=== PATIENT | male | born 1940 | race Caucasian/White ===

== ENCOUNTER 2021-05-22 10:50 | Outpatient (REF) | payer MEDICARE, SELFPAY ==
--- NOTE | ~2021-05-22 | XR_ITS ---
EXAMINATION: XR CHEST CLINICAL INFORMATION: Chronic cough COMPARISON: CT scan of April 05, 2019 and chest x-ray of April 14, 2019 TECHNIQUE: 2 views of the chest were obtained. FINDINGS: There is an increasing soft tissue density seen overlying the right apex and enlarging tumor cannot be excluded. No bony destruction is evident. On previous CT scan there is approximately 2 cm soft tissue pleural-based density on April 05, 2019. There is bilateral apical pleural-parenchymal scarring present. Heart normal size. No evidence of pulmonary edema. No pneumothorax or pleural effusion. XR/XR chest 2V IMPRESSION: Enlarging soft tissue density about the right apex for which malignancy cannot be excluded.
--- NOTE | ~2021-05-22 | XR_ITS ---
EXAMINATION: XR CERVICAL SPINE CLINICAL INFORMATION: Dorsalgia. COMPARISON: None TECHNIQUE: 5 views of the cervical spine. FINDINGS: No abnormal prevertebral soft tissue swelling is seen. No acute fracture is appreciated. There is significant disc space narrowing seen C3 through C7 with some marginal spurring. At the C4-C5 level there is some spurring of the joints of [place] which appears be causing some degree of neural foraminal encroachment on the right and to a lesser extent on the left. XR/XR cervical spine min 6V IMPRESSION: No acute cervical spine fracture. Cervical spondylosis as described predominately C3 through C7.
== END 2021-05-22 10:51 | disposition home or self-care (01) ==
LOC: HO.XRAY 10:50
PROVIDERS: PCP Registered Nurse Community Health; Visit Provider Registered Nurse Community Health
DX: M54.9 Dorsalgia, unspecified (principal); R05.3 Chronic cough
CPT/HCPCS: 71046; 72052

== ENCOUNTER 2021-07-16 12:27 | Emergency (ER) | payer MEDICARE, SELFPAY ==
--- NOTE | ~2021-07-16 | XR_ITS ---
EXAMINATION: XR CHEST CLINICAL INFORMATION: Chest pain COMPARISON: Previous chest x-ray April [address] March 2019 TECHNIQUE: Frontal view of the chest was obtained. FINDINGS: The heart does not appear enlarged. There is dilatation of the descending thoracic aorta that appears unchanged. Mediastinal contours are unremarkable. There is evidence of emphysema. There is biapical pleural parenchymal scarring, right greater than left. This does not appear appreciably changed from previous chest x-ray April 2021 however changes on the right appear increased from old chest CT March 2019. There are calcified nodules suggestive of old granulomatous disease. The lungs are otherwise clear. There is no pleural effusion or pneumothorax. Visualized bony structures are unremarkable. XR/XR chest 1V IMPRESSION: No evidence for acute disease in the chest. Biapical pleural and parenchymal scarring, right greater than left. This may be increased in the right lung compared to previous chest CT scan. Emphysema. Aneurysm of the descending thoracic aorta similar to previous exam.
--- NOTE | ~2021-07-16 | XR_ITS ---
EXAMINATION: XR THORACOLUMBAR SPINE CLINICAL INFORMATION: Pain COMPARISON: Previous x-ray September 2010 TECHNIQUE: 3 views of the thoracic spine FINDINGS: Bone alignment is normal. The bones are osteopenic. There is a mild old-appearing T8 vertebral body compression fracture. There is question of a L2 vertebral body compression fracture. This is incompletely visualized. There is an aortic stent graft that is incompletely visualized. There is mild degenerative disc disease of the midthoracic spine. There is right apical pleural thickening. Paraspinal soft tissues are otherwise normal. XR/XR thoracic spine 2V IMPRESSION: Osteopenia. Mild old-appearing T8 vertebral body compression fracture. Question L2 vertebral body compression fracture.
--- NOTE | ~2021-07-16 | CT_ITS ---
EXAMINATION: CT ANGIOGRAM OF THE CHEST WITH AND WITHOUT CONTRAST (CT PULMONARY ANGIOGRAM FOR PE) CLINICAL INFORMATION: Reason for Exam Chest pain, elevated D-dimer COMPARISON: Previous chest x-ray from earlier the same day and chest CTA March 2019 TECHNIQUE: Prior to contrast administration, noncontrast localization images were obtained. Subsequently, multidetector volumetric imaging was performed from the thoracic inlet to below the diaphragms following the administration of 54 mL Omnipaque 350 intravenous contrast. No contrast reaction reported Sagittal, coronal, and MIP oblique sagittal reformatted images were obtained on the CT workstation, uploaded to PACS, and reviewed. This CT examination was performed using dose optimization techniques as appropriate, variously including the following: *Automated exposure control *Adjustment of mA and/or kV according to patient size (this includes techniques or standardized protocols for targeted exams where dose is matched to indication/reason for exam; i.e. extremities or head) *Use of iterative reconstruction technique Total exam dose-length product 228 mGy-cm FINDINGS: QUALITY OF STUDY/CONTRAST BOLUS: Satisfactory. PULMONARY ARTERIES: No central or segmental pulmonary emboli. THORACIC AORTA: There is an aneurysm of the descending thoracic aorta and upper abdominal aorta. This measures 5.2 x 6 cm in transverse and AP dimension. This is slightly increased in size from 4.7 x 5.4 cm March 2019. The ascending thoracic aorta and aortic arch are upper normal in size. Heart does not appear enlarged. The pulmonary arteries are upper normal in size, main pulmonary artery measuring 3 cm. LUNG: There is evidence of emphysema. There is a 4.4 x 6 cm mass at the right lung apex. This extends to the mediastinum abutting the right side of the trachea and esophagus and abuts the T2 vertebral body and first second and third ribs. There is mild bronchial wall thickening and peribronchial nodular opacities in the right lower lobe suggestive of tree-in-bud appearance or airways disease. There are small calcified pulmonary nodules probably representing calcified granulomas. There is a 4 mm peripheral or subpleural right lower lobe nodule adjacent to the major fissure axial image 37 series 5. There is question of a 4 mm right middle lobe nodule axial image 43 series 5. PLEURA: No pleural effusion or pneumothorax. MEDIASTINUM: Normal heart size. No pericardial effusion. Small calcified subcarinal and left hilar lymph nodes. No enlarged lymph nodes.. No evidence of septal bowing or right heart strain. CHEST WALL/AXILLA: No axillary or internal mammary lymphadenopathy. OSSEOUS STRUCTURES: Degenerative changes of the spine. Old mid thoracic vertebral body mild compression fracture. UPPER ABDOMEN: There are calcifications in the spleen. There is an abdominal aortic stent graft that is partially visualized. No reflux of contrast into the hepatic veins to suggest elevated right heart pressures. CT/CT angio chest PE protocol IMPRESSION: No evidence of pulmonary embolism. Severe emphysema. 4.6 x 6 cm right upper lobe apical mass worrisome for neoplasm/Pancoast tumor. Airways disease in the right lower lobe. Aneurysm of the descending thoracic and upper abdominal aorta measuring 5.2 x 6 cm. This is increased in size from 4.7 x 5.4 cm March 2019. VTE:
[2021-07-16 12:31] VITALS: BP 180/95; PULSE 83; O2SAT 98
[2021-07-16 12:43] VITALS: BP 155/87; PULSE 89; RESP 20; TEMP 36.8; O2SAT 100; BMI 16.6
--- NOTE | 2021-07-16 12:52 | ECG_ITS ---
Test Reason : CHEST PAIN Blood Pressure : / mmHG Vent. Rate : 076 BPM Atrial Rate : 076 BPM P-R Int : 190 ms QRS Dur : 092 ms QT Int : 376 ms P-R-T Axes : 073 063 071 degrees QTc Int : 423 ms Normal sinus rhythm Normal ECG When compared with ECG of 14-APR-2019 11:46, MS interval has decreased Referred By: Reggie Covarruibas Electronically Signed By:Clint Small
--- NOTE | 2021-07-16 12:56 | ED.GENADULT ---
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 History was obtained from the patient and EMS with a counseling services director, 81-year-old male who lives home alone mostly independently, and his son visited him on a daily basis, patient has been complaining of chest pain radiating to the upper back, patient however declined any fall or recent foam or trauma to the chest or the back, patient reported cough for a month. Upper back pain started a month ago patient was taking Advil/Tylenol with no relief of the pain reportedly patient finish whole bottle of Advil last month, pain is mostly positional and worsening with movement and coughing, no relieving factor, pain is described as severe 10/10 dull aching pain, no difficulty breathing. No fever or chills. Patient stated no abdominal pain, normal bowel movements in particular no bloody or black stool, no vomiting. Related Data Allergies Allergy/AdvReac Type Severity Reaction Status Date / Time shrimp Allergy Severe UNKNOWN Unverified 01/12/20 16:03 SEAFOOD Allergy Severe UNKNOWN Uncoded 01/12/20 16:03 Review of Systems Review of Systems: All other systems are reviewed and are negative Constitutional: Reports as per HPI and Reports no additional constitutional complaints Eyes: Reports as per HPI and Reports no additional eye complaints Reports system reviewed and no additional complaints, except as documented Cardiovascular: Reports as per HPI and Reports no additional cardiovascular complaints Respiratory: Reports as per HPI and Reports no additional respiratory complaints Gastrointestinal: Reports as per HPI and Reports no additional gastrointestinal complaints Genitourinary: Reports no additional female genitourinary complaints Musculoskeletal: Reports no additional musculoskeletal complaints Skin/Breast: Reports system reviewed and no additional complaints, except as docu Psychiatric: Reports no additional psychiatric complaints Endocrine: Reports no additional endocrine complaints Hematologic/Lymphatic: Reports no additional hematologic/lymphatic complaints Allergic/Immunologic: Reports no additional allergic/immunologic complaints Reports system reviewed and no additional complaints, except as documented and Reports Abnormal speech present PMFSH Social History Social History Advance Directives: No Advance Directives Information Provided: No Physical Exam ED Vital Signs: Vital Signs - 24 hr 07/16/21 12:43 07/16/21 15:35 07/16/21 19:26 Temperature 98.2 F 97.4 F Pulse Rate 89 82 120 H Respiratory Rate 20 15 16 Blood Pressure 155/87 H 162/103 H 154/94 H Pulse Oximetry 100 98 95 07/16/21 19:31 Temperature Pulse Rate 112 H Respiratory Rate Blood Pressure Pulse Oximetry BMI result Body Mass Index 16.6 Vital signs have been reviewed as appeared to be correct. Blood pressure normal. Heart rate normal. Respiration rate normal. Temperature normal. Oxygen saturation normal. Appearance: Alert. Oriented X3. No acute distress. Head: Normal external exam. Normocephalic. Atraumatic. No Abreu signs noted. No raccoon eyes noted Eyes: PERRLA. EOMI. Conjunctiva and sclera normal. Eyelids normal. ENT: TM's Normal. Pharynx normal. Uvula midline. Moist mucous membranes. No trismus noted. No drooling noted. No muffled voice noted. Neck: Normal inspection. Neck supple. FROM. No adenopathy. Thyroid Normal. No meningeal signs. No neck mass noted. CVS: Normal heart rate and rhythm. Heart sound normal. No murmurs noted. Pulses normal throughout. Respiratory: No respiratory distress. Painless inspiration. Breath sounds normal. No wheezes/rales/rhonchi noted. Chest nontender. No accessory muscle usage noted or decreased air movement noted. Abdomen: Soft and nontender. Bowel sounds normal in all 4 quadrants. No distention noted. No organomegaly noted. No visible injury noted. Back: No CVA tenderness. Full range of motion noted. Skin: Skin warm and dry. Normal skin color. Normal skin turgor. No rashes/lesions/lacerations noted. Extremities: No lower extremity edema. Extremities exhibit normal range of motion. Extremities nontender. Neuro: Oriented X 3. Cranial nerve exam: II-XII are grossly intact No motor deficit. No sensory deficit. Reflexes normal. Course Course Course Narrative: Assessment and plan. 81 years old male history of vascular disease came in for a month of epigastric pain radiating to the midback family were concerned that the patient was taking too much Advil and Tylenol for the past months acetaminophen/salicylic acid levels are nondetectable, patient declined any history of trauma, no reproducible tenderness on the exam, thoracic x-ray showed T8 old compression fracture but no reproducible tenderness on the dorsal spine. CT scan with IV contrast showed increasing size of AAA from last year CT (size today is 5.2 x 6 cm increased in size from 4.7 x 5.4 cm in March 2019) given increase the size of the AAA and worsening of the patient's symptoms with pain out of the proportion of the exam is concerning of impending rupture of AAA the case was discussed with Dr. Delano hodges who is covering for vascular surgery tonight recommended to transfer the patient to [facility], the case was discussed with Dr. Davis vascular surgeon at [facility] who recommended to transport for further evaluation at [facility]. The case was discussed with the patient's son (Daniel). I discussed the plan with the patient using counseling services director service. Medical Decision Making Lab Data Result diagrams: 07/16/21 14:32 07/16/21 14:33 Labs: Lab Results 07/16/21 07/16/21 07/16/21 Range/Units 14:32 14:32 14:32 WBC 11.0 H (4.8-10.8) X10*3/uL RBC 2.69 L (4.60-5.80) X10*6/uL Hgb 9.1 L (14.0-18.0) g/dl Hct 28.2 L (42.0-52.0) % MCV 104.8 H (80.0-98.0) fL MCH 33.8 H (27.0-33.0) pg MCHC 32.3 (31.0-36.0) g/dl RDW 17.8 H (11.0-16.0) % Plt Count 328 (160-400) X10*3/uL MPV 10.2 (9.4-12.4) fL Immature Gran % (Auto) 1.5 H (0.0-0.4) % Neut % (Auto) 79.5 H (45-73) % Lymph % (Auto) 6.2 L (20-40) % [place] % (Auto) 4.4 (2-11) % Eos % (Auto) 8.1 H (0-4) % Baso % (Auto) 0.3 (0-2) % Lymph # (Auto) 0.7 L (1.2-4.9) X10*3/uL [place] # (Auto) 0.5 (0.1-1.2) X10*3/uL Eos # (Auto) 0.9 H (0.0-0.4) X10*3/uL Baso # (Auto) 0.0 (0.0-0.2) X10*3/uL Abs Immat Gran (auto) 0.17 H (0.00-0.03) X10*3/uL Absolute Neuts (auto) 8.8 H (2.0-8.3) x10*3/uL Absolute Nucleated RBC 0.000 (0.0-0.012) X10*3/uL Nucleated RBC % (auto) 0.0 (0.0-0.2) /100WBC D-Dimer High Sensitivty 533 NG/ML Sodium (135-145) mmol/L Potassium (3.3-5.1) mmol/L Chloride (96-108) mmol/L Carbon Dioxide (22-29) mmol/L Anion Gap (12-20) BUN (9-16) mg/dL Creatinine (0.5-1.4) mg/dL Estim Creat Clear Calc Estimated GFR Random Glucose (60-115) mg/dL Calcium (8.4-10.2) mg/dL Total Bilirubin (0.0-1.0) mg/dL Direct Bilirubin (0.0-0.5) mg/dL AST (5-37) U/L ALT (0-40) U/L Alkaline Phosphatase (39-117) U/L Troponin I High Sens 3.6 (<3.5-35.0) ng/L B-Natriuretic Peptide (<100) pg/mL Total Protein (6.5-8.0) g/dL Albumin (3.5-5.0) g/dL Lipase (8-78) U/L Urine Color Urine Appearance Urine pH (5.0-8.0) Ur Specific Bishop (1.005-1.025) Urine Protein (NEG-TRACE) MG/DL Urine Glucose (UA) (NEG) MG/DL Urine Ketones (NEG) MG/DL Urine Blood (NEG) Urine Nitrite (NEG) Ur Leukocyte Esterase (NEG) Urine RBC (0) /HPF Urine WBC (0-4) /HPF Ur Squamous Epith Cells /LPF Urine Bacteria /LPF Salicylates (15-30) mg/dL Acetaminophen (<30) mcg/mL 07/16/21 07/16/21 07/16/21 Range/Units 14:33 14:33 19:31 WBC (4.8-10.8) X10*3/uL RBC (4.60-5.80) X10*6/uL Hgb (14.0-18.0) g/dl Hct (42.0-52.0) % MCV (80.0-98.0) fL MCH (27.0-33.0) pg MCHC (31.0-36.0) g/dl RDW (11.0-16.0) % Plt Count (160-400) X10*3/uL MPV (9.4-12.4) fL Immature Gran % (Auto) (0.0-0.4) % Neut % (Auto) (45-73) % Lymph % (Auto) (20-40) % [place] % (Auto) (2-11) % Eos % (Auto) (0-4) % Baso % (Auto) (0-2) % Lymph # (Auto) (1.2-4.9) X10*3/uL [place] # (Auto) (0.1-1.2) X10*3/uL Eos # (Auto) (0.0-0.4) X10*3/uL Baso # (Auto) (0.0-0.2) X10*3/uL Abs Immat Gran (auto) (0.00-0.03) X10*3/uL Absolute Neuts (auto) (2.0-8.3) x10*3/uL Absolute Nucleated RBC (0.0-0.012) X10*3/uL Nucleated RBC % (auto) (0.0-0.2) /100WBC D-Dimer High Sensitivty NG/ML Sodium 137 (135-145) mmol/L Potassium 4.9 (3.3-5.1) mmol/L Chloride 104 (96-108) mmol/L Carbon Dioxide 25 (22-29) mmol/L Anion Gap 13 (12-20) BUN 25 H (9-16) mg/dL Creatinine 1.31 (0.5-1.4) mg/dL Estim Creat Clear Calc 33.2 Estimated GFR 52 Random Glucose 105 (60-115) mg/dL Calcium 9.0 (8.4-10.2) mg/dL Total Bilirubin 0.4 (0.0-1.0) mg/dL Direct Bilirubin 0.2 (0.0-0.5) mg/dL AST 10 (5-37) U/L ALT 7 (0-40) U/L Alkaline Phosphatase 114 (39-117) U/L Troponin I High Sens (<3.5-35.0) ng/L B-Natriuretic Peptide 78 (<100) pg/mL Total Protein 7.2 (6.5-8.0) g/dL Albumin 3.3 L (3.5-5.0) g/dL Lipase 19 (8-78) U/L Urine Color YELLOW Urine Appearance CLEAR Urine pH 6.0 (5.0-8.0) Ur Specific Bishop 1.010 (1.005-1.025) Urine Protein NEG (NEG-TRACE) MG/DL Urine Glucose (UA) NEG (NEG) MG/DL Urine Ketones NEG (NEG) MG/DL Urine Blood 1+ H (NEG) Urine Nitrite NEG (NEG) Ur Leukocyte Esterase NEG (NEG) Urine RBC 5-9 H (0) /HPF Urine WBC 10-14 H (0-4) /HPF Ur Squamous Epith Cells TRACE /LPF Urine Bacteria 3+ /LPF Salicylates < 5.0 L (15-30) mg/dL Acetaminophen 3 (<30) mcg/mL Critical Care Time Critical Care Time Critical Care Time: Yes Total Critical Care Time: 45 Attestation: I spent 45 minutes providing critical care service to the patient, this including time spent at the bedside to evaluate the patient, reassess the patient, monitoring vital signs, review labs, and radiographic studies, counseling the patient/family, discussing the case with consultants, disposition the patient. Discharge Plan Discharge Clinical Impression: Back pain, Abdominal aortic aneurysm Patient Disposition: Xfer [facility] Transfer Details: To the emergency department Interventions: Acute Care Transfer Worksheet (ED) Last Done: 07/16/21 20:43 Discharge Date/Time: 07/16/21 20:48
[2021-07-16] MEDS: 0.9 % Sodium Chloride 1,000 ML 999 ML IV (13:23)
[2021-07-16 14:38] LABS: MANUAL DIFF FLAG NO
[2021-07-16 14:39] LABS: Basophils Percent Auto 0.3 % (0-2); Eosinophils Absolute Auto 0.9 X10*3/uL (0.0-0.4); Eosinophils Percent Auto 8.1 % (0-4); Hematocrit 28.2 % (42.0-52.0); Hemoglobin 9.1 g/dl (14.0-18.0); Imm Gran Abs Auto 0.17 X10*3/uL (0.00-0.03); Imm Gran Pct Auto 1.5 % (0.0-0.4); Lymphocytes Absolute Auto 0.7 X10*3/uL (1.2-4.9); Lymphocytes Percent Auto 6.2 % (20-40); Mean Corpuscular HGB Conc 32.3 g/dl (31.0-36.0); Mean Corpuscular Hemoglobin 33.8 pg (27.0-33.0); Mean Corpuscular Volume 104.8 fL (80.0-98.0); Mean Platelet Volume 10.2 fL (9.4-12.4); Monocytes Absolute Auto 0.5 X10*3/uL (0.1-1.2); Monocytes Percent Auto 4.4 % (2-11); Neutrophils Absolute Auto 8.8 x10*3/uL (2.0-8.3); Neutrophils Percent Auto 79.5 % (45-73); Platelet Count 328 X10*3/uL (160-400); Red Blood Count 2.69 X10*6/uL (4.60-5.80); Red Cell Distribution Width 17.8 % (11.0-16.0)
[2021-07-16 14:46] LABS: D Dimer High Sensitivity 533 NG/ML
[2021-07-16 15:02] LABS: Acetaminophen LAB 3 mcg/mL (<30); Alanine Aminotransferase 7 U/L (0-40); Albumin Level 3.3 g/dL (3.5-5.0); Alkaline Phosphatase 114 U/L (39-117); Anion Gap 13 (12-20); Aspartate Amino Transferase 10 U/L (5-37); Bilirubin Direct 0.2 mg/dL (0.0-0.5); Bilirubin Total 0.4 mg/dL (0.0-1.0); Blood Urea Nitrogen 25 mg/dL (9-16); Carbon Dioxide 25 mmol/L (22-29); Chloride 104 mmol/L (96-108); Creatinine Clr Calc Pharmacy 33.2; Estimated Glomerular Filt Rate 52; Glucose Random 105 mg/dL (60-115); Lipase 19 U/L (8-78); Potassium 4.9 mmol/L (3.3-5.1); Salicylate < 5.0 mg/dL (15-30); Sodium 137 mmol/L (135-145); Total Protein 7.2 g/dL (6.5-8.0)
[2021-07-16 15:08] LABS: Troponin-I High Sensitivity 3.6 ng/L (<3.5-35.0)
[2021-07-16 15:09] LABS: B Type Natriuretic Peptide 78 pg/mL (<100)
[2021-07-16 15:35] VITALS: BP 162/103; PULSE 82; RESP 15; TEMP 36.3; O2SAT 98
[2021-07-16] MEDS: iohexoL 350 MG/ML 100 ML INFUS..BTL IV (16:19)
[2021-07-16 19:26] VITALS: BP 154/94; PULSE 120; RESP 16; O2SAT 95
[2021-07-16 19:31] VITALS: PULSE 112
[2021-07-16 19:36] LABS: Appearance Urine CLEAR; Color Urine YELLOW; Glucose Urine UA NEG (NEG); Leukocyte Esterase Urine NEG (NEG); Nitrite Urine NEG (NEG); UACC Culture Trigger NO; Urine Blood 1+ (NEG); Urine Ketones NEG (NEG); Urine Protein NEG (NEG-TRACE)
[2021-07-16 19:48] LABS: Bacteria Urine 3+ /LPF; Squamous Epithelial Cell Urine TRACE /LPF; UACC CULT YES
--- NOTE | 2021-07-16 20:48 | PC.NURSE ---
I assumed care of this pt at 1900. Since that time he has been alert, oriented x 3, ambulating throughout his room (while monitored on rn cardiac), aware that he is being transferred to [facility] for vascular surgery consult. he is hungry but has been notified that we must keep him NPO until he sees [facility] providers. he verbalized an understanding. Nursing report given to Belinda LONDON at [facility] at thistime. Pt en route with EMS>
== END 2021-07-16 20:48 | disposition short-term general hospital (02) ==
PROVIDERS: Emergency Provider Emergency Medicine; PCP Registered Nurse Community Health
DX: M54.6 Pain in thoracic spine (principal); R07.9 Chest pain, unspecified; I71.4 Abdominal aortic aneurysm, without rupture; Z91.81 History of falling
CPT/HCPCS: 36415; 71045; 71275; 72070; 80048; 80076; 80143; 80179; 81001; 83690; 83880; 84484; 85025; 85379; 87086; 87088; 87186; 93005; 96360; 99285; 99291; Q9967